=== PATIENT | male | born 1945 | race Caucasian/White ===

== ENCOUNTER 2017-09-12 12:03 | Inpatient (IN) | payer BC, MEDICARE ==
[2017-09-12] MEDS: CEFAZOLIN 2 GM/50 ML (PMX) 50 ML IVPB (06:00)
[2017-09-12] MEDS: TRANEXAMIC ACID 1,000 MG in DEXTROSE 5% 100 ML IVPB (06:00)
[~2017-09-12 12:03] MED LIST: BUPIVACAINE 0.5% (SDV) 30 ML, morphine SULFATE (PF) 8 MG, EPINEPHrine 0.3 MG, KETOROLAC... IRR
[2017-09-12] MEDS: traMADol 50 MG TAB PO (12:39)
[2017-09-12] MEDS: GABAPENTIN 300 MG CAP PO ×2 (12:39→22:18)
[2017-09-12] MEDS: DEXAMETHASONE 1 MG TAB PO (12:39)
[2017-09-12] MEDS ORDERED: ROPIVACAINE 0.5 % 30 ML VIAL (13:21)
[2017-09-12] MEDS ORDERED: LIDOCAINE 2% (SDV) 5 ML INJ (13:23)
[2017-09-12] MEDS ORDERED: PROPOFOL 20 ML (13:23)
[2017-09-12] MEDS ORDERED: CEFAZOLIN 1 GM INJ (13:23)
[2017-09-12] MEDS ORDERED: THROMBIN 5000 UNIT VIAL (13:43)
[2017-09-12] MEDS ORDERED: BUPIVACAINE 0.5%/EPI (SDV) 30 ML INJ (13:43)
[2017-09-12] MEDS: POLYMYXIN/BACITRACIN 1L IRRIG (15:00)
[2017-09-12] MEDS ORDERED: hydrALAzine 20 MG INJ (15:04)
[2017-09-12] MEDS ORDERED: DIPHENHYDRAMINE 50 MG INJ IV ×2 (15:30→16:30)
[2017-09-12] MEDS ORDERED: MIDAZOLAM 1 MG/ML 2 ML INJ IV (15:30)
[2017-09-12] MEDS ORDERED: hydrALAzine 20 MG INJ IV (15:30)
[2017-09-12] MEDS ORDERED: HYDROmorphONE (0.2 MG/ML) 10ML SYG IV ×3 (15:30)
[2017-09-12] MEDS ORDERED: LABETALOL HCL 20MG INJ IV (15:30)
[2017-09-12] MEDS ORDERED: MEPERIDINE 25 MG INJ IV (15:30)
[2017-09-12] MEDS ORDERED: METOCLOPRAMIDE 10 MG INJ IV (15:30)
[2017-09-12] MEDS ORDERED: ONDANSETRON 4 MG INJ IV ×2 (15:30→16:30)
[2017-09-12] MEDS ORDERED: EPHEDrine SULFATE 50 MG/5 ML SYG IV (15:30)
[2017-09-12] MEDS ORDERED: OXYCODONE/ACETAMINOPHEN (5/325) TAB PO ×3 (15:30→16:30)
[2017-09-12] MEDS ORDERED: ONDANSETRON 4 MG INJ (16:09)
[2017-09-12] MEDS ORDERED: KETOROLAC 15 MG INJ IV (16:30)
[2017-09-12] MEDS ORDERED: ZOLPIDEM 5 MG TAB PO (16:30)
[2017-09-12] MEDS ORDERED: ACETAMINOPHEN 500 MG TAB PO (16:30)
[2017-09-12] MEDS: [UNRECOGNIZED DRUG - REMARK] XX (16:30)
[2017-09-12] MEDS ORDERED: MAGNESIUM HYDROXIDE 30ML CUP PO (16:30)
[2017-09-12] MEDS ORDERED: morphine 2 MG INJ IV ×2 (16:30)
[2017-09-12] MEDS: CEFAZOLIN 1 GM/50 ML (PMX) 50 ML IVPB (17:15)
[2017-09-12] MEDS: TRANEXAMIC ACID 1,000 MG in DEXTROSE 5% 100 ML IV (17:31)
[2017-09-12] MEDS: DEXAMETHASONE 2 MG TAB PO (18:00)
[2017-09-12] MEDS ORDERED: GLUCAGON 1 MG INJ IM (21:30)
[2017-09-12] MEDS ORDERED: DEXTROSE 50% 50 ML SYRINGE IV ×2 (21:30)
[2017-09-12] MEDS ORDERED: GLUCOSE GEL 15 GRAM TUBE PO ×2 (21:30)
[2017-09-12] MEDS ORDERED: GLUCOSE GEL 15 GRAM TUBE BUCCAL (21:30)
[2017-09-12] MEDS: SENNA/DOCUSATE NA (8.6MG/50MG) TAB PO (22:18)
[2017-09-12] MEDS: EZETIMIBE 10 MG TAB PO (22:21)
[2017-09-12] MEDS: INSULIN ASPART [NOVOLOG] 3 ML PEN SC (22:23)
[2017-09-13] MEDS: DEXAMETHASONE 2 MG TAB PO ×2 (00:11→05:59)
[2017-09-13] MEDS: CEFAZOLIN 1 GM/50 ML (PMX) 50 ML IVPB ×2 (00:15→08:55)
[2017-09-13] MEDS: [UNRECOGNIZED DRUG - REMARK] XX ×2 (00:30→08:30)
[2017-09-13] MEDS: ACCU-CHEK XX (02:00)
[2017-09-13] MEDS: OXYCODONE/ACETAMINOPHEN (5/325) TAB PO (07:48)
[2017-09-13] MEDS: INSULIN ASPART [NOVOLOG] 3 ML PEN SC (07:50)
[2017-09-13] MEDS ORDERED: GLIMEPIRIDE 2 MG TAB PO (07:50)
[2017-09-13] MEDS: SENNA/DOCUSATE NA (8.6MG/50MG) TAB PO (08:53)
[2017-09-13] MEDS: MAGNESIUM OXIDE 400 MG TAB PO (08:53)
[2017-09-13] MEDS: ASPIRIN 81 MG TAB PO (08:53)
[2017-09-13] MEDS: TRIAMTERENE/HCTZ (50-25) CAP PO (08:54)
[2017-09-13] MEDS ORDERED: POTASSIUM GLUCONATE 595 MG PO (09:00)
== END 2017-09-13 11:12 | disposition home or self-care (01) | DRG 483 ==
LOC: REC 12:03 → MS1 17:50
PROVIDERS: Orthopaedic Surgery
PROC: 0RRJ00Z Replacement of Right Shoulder Joint with Reverse Ball and Socket Synthetic Substitute, Open Approach (ICD-10-PCS; principal; 2017-09-12 14:08)
PROC: 0RPJ0JZ Removal of Synthetic Substitute from Right Shoulder Joint, Open Approach (ICD-10-PCS; 2017-09-12 14:08)
DX: T84.038A Mechanical loosening of other internal prosthetic joint, initial encounter (principal); Z96.611 Presence of right artificial shoulder joint; M75.101 Unspecified rotator cuff tear or rupture of right shoulder, not specified as traumatic
CPT/HCPCS: 73030-RT; 82962; 86999; 97165

== ENCOUNTER 2017-10-10 05:30 | Inpatient (IN) | payer BC, MEDICARE ==
[2017-10-10] MEDS: GABAPENTIN 300 MG CAP PO ×2 (06:24→21:38)
[2017-10-10] MEDS: traMADol 50 MG TAB PO (06:24)
[2017-10-10] MEDS: DEXAMETHASONE 1 MG TAB PO (06:25)
[2017-10-10 06:31] LABS: ADD MAN DIFF? NO
[2017-10-10 06:36] LABS: WHITE BLOOD COUNT 6.4 10^3/ul (4.8-10.8)
[2017-10-10 06:36] LABS: BASOPHIL # 0.1 10^3/ul (0.0-0.1); BASOPHILS % 0.8 % (0.0-2.0); EOSINOPHILS # 0.3 10^3/ul (0.0-0.5); EOSINOPHILS % 4.1 % (0.0-7.0); HEMATOCRIT 40.6 % (42.0-52.0); HEMOGLOBIN 13.5 g/dl (14.0-18.0); LYMPHOCYTES # 1.5 10^3/ul (0.8-2.9); LYMPHOCYTES % 23.9 % (15.0-51.0); MEAN CORPUSCULAR HEMOGLOBIN 31.4 pg (29.0-33.0); MEAN CORPUSCULAR HGB CONC 33.3 g/dl (32.0-37.0); MEAN CORPUSCULAR VOLUME 94.4 fl (82.0-101.0); MEAN PLATELET VOLUME 10.3 fl (7.4-10.4); MONOCYTE # 0.6 10^3/ul (0.3-0.9); MONOCYTES % 9.6 % (0.0-11.0); NEUTROPHIL # 3.9 10^3/ul (1.6-7.5); NEUTROPHILS % 61.1 % (39.0-77.0); PLATELET COUNT 279 10^3/UL (140-415); RED CELL DISTRIBUTION WIDTH 12.4 % (11.5-14.5)
[2017-10-10] MEDS ORDERED: MIDAZOLAM 1 MG/ML 2 ML INJ (06:39)
[2017-10-10] MEDS ORDERED: ROPIVACAINE 0.5 % 30 ML VIAL (06:39)
[2017-10-10 06:54] LABS: INR 0.97
[2017-10-10 06:56] LABS: ALANINE AMINOTRANSFERASE 33 IU/L (13-69); ALBUMIN 4.3 g/dl (3.3-4.9); ALKALINE PHOSPHATASE 148 IU/L (42-121); ANION GAP 15 (8-16); ASPARTATE AMINO TRANSFERASE 30 IU/L (15-46); BILIRUBIN,INDIRECT 0.6 mg/dl (0-1.1); BILIRUBIN,TOTAL 0.6 mg/dl (0.2-1.3); CARBON DIOXIDE 30 mmol/L (21-31); CHLORIDE 100 mmol/L (97-110); GLUCOSE 195 mg/dl (70-220); TOTAL PROTEIN 8.2 g/dl (6.1-8.1)
[2017-10-10 06:59] LABS: BLOOD UREA NITROGEN 21 mg/dl (7-20); CALCIUM 9.7 mg/dl (8.4-10.2); CREATININE 0.91 mg/dl (0.61-1.24); POTASSIUM 3.4 mmol/L (3.5-5.1); SODIUM 142 mmol/L (135-144)
[2017-10-10] MEDS ORDERED: BUPIVACAINE 0.5% (SDV) 30 ML, morphine SULFATE (PF) 8 MG, EPINEPHrine 0.3 MG, KETOROLAC... IRR (07:00)
[2017-10-10] MEDS ORDERED: CEFAZOLIN 2 GM/50 ML (PMX) 50 ML IVPB (07:00)
[2017-10-10] MEDS ORDERED: TRANEXAMIC ACID 1,000 MG in DEXTROSE 5% 100 ML IVPB (07:00)
[2017-10-10 07:01] LABS: ADD UMIC YES; UR ASCORBIC ACID NEGATIVE (NEGATIVE); UR BILIRUBIN (Dip) NEGATIVE (NEGATIVE); UR BLOOD (Dip) 1+ mg/dL (NEGATIVE); UR CLARITY CLEAR (CLEAR); UR COLOR YELLOW (YELLOW); UR GLUCOSE (Dip) NEGATIVE (NEGATIVE); UR KETONES (Dip) NEGATIVE (NEGATIVE); UR LEUKOCYTE ESTERASE (Dip) NEGATIVE Leu/ul (NEGATIVE); UR MUCUS FEW /HPF (NONE SEEN); UR NITRITE (Dip) NEGATIVE (NEGATIVE); UR RBC 1 /HPF (0-5); UR SPECIFIC GRAVITY (Dip) 1.016 (1.003-1.030); UR TOTAL PROTEIN (Dip) NEGATIVE (NEGATIVE); UR UROBILINOGEN (Dip) NEGATIVE (NEGATIVE); UR WBC 1 /HPF (0-5)
[2017-10-10] MEDS: CA CHLORIDE 10% 10 ML SYRINGE (07:03)
[2017-10-10] MEDS ORDERED: TOBRAMYCIN 1.2 GM POWDER (07:03)
[2017-10-10] MEDS: POLYMYXIN/BACITRACIN 1L IRRIG (07:03)
[2017-10-10] MEDS: THROMBIN 5000 UNIT VIAL (07:03)
[2017-10-10] MEDS: BUPIVACAINE 0.5%/EPI (SDV) 30 ML INJ (07:03)
[2017-10-10 07:09] LABS: PARTIAL THROMBOPLASTIN TIME 36.2 Sec (25.0-35.0)
[2017-10-10] MEDS ORDERED: LABETALOL HCL 20MG INJ (07:35)
[2017-10-10] MEDS ORDERED: PROPOFOL 20 ML (07:35)
[2017-10-10] MEDS ORDERED: SUCCINYLCHOLINE CHLORIDE 100 MG/5 ML SYG IV (07:35)
[2017-10-10] MEDS ORDERED: ROCURONIUM 50 MG INJ (07:35)
[2017-10-10] MEDS ORDERED: LIDOCAINE 100 MG SYRINGE (07:35)
[2017-10-10] MEDS ORDERED: SUGAMMADEX SODIUM 200 MG/2 ML VIAL IV (07:35)
[2017-10-10] MEDS ORDERED: CEFAZOLIN 1 GM INJ (07:35)
[2017-10-10] MEDS ORDERED: MAGNESIUM HYDROXIDE 30ML CUP PO (08:30)
[2017-10-10] MEDS ORDERED: METOCLOPRAMIDE 10 MG INJ IV (08:30)
[2017-10-10] MEDS ORDERED: ACETAMINOPHEN 500 MG TAB PO (08:30)
[2017-10-10] MEDS ORDERED: OXYCODONE/ACETAMINOPHEN (5/325) TAB PO (08:30)
[2017-10-10] MEDS ORDERED: DIPHENHYDRAMINE 50 MG INJ IV ×2 (08:30)
[2017-10-10] MEDS ORDERED: KETOROLAC 15 MG INJ IV (08:30)
[2017-10-10] MEDS ORDERED: MEPERIDINE 25 MG INJ IV (08:30)
[2017-10-10] MEDS ORDERED: morphine 2 MG INJ IV (08:30)
[2017-10-10] MEDS ORDERED: FENTAnyl 50 MCG/ML VIAL IV ×2 (08:30)
[2017-10-10] MEDS ORDERED: ONDANSETRON 4 MG INJ IV ×2 (08:30)
[2017-10-10] MEDS ORDERED: HYDROmorphONE 1 MG/5 ML IV SYRINGE IV ×2 (08:30)
[2017-10-10] MEDS ORDERED: ZOLPIDEM 5 MG TAB PO (08:30)
[2017-10-10] MEDS ORDERED: GLUCOSE GEL 15 GRAM TUBE PO ×2 (10:00)
[2017-10-10] MEDS ORDERED: GLUCOSE GEL 15 GRAM TUBE BUCCAL (10:00)
[2017-10-10] MEDS ORDERED: GLUCAGON 1 MG INJ IM (10:00)
[2017-10-10] MEDS ORDERED: DEXTROSE 50% 50 ML SYRINGE IV ×2 (10:00)
[2017-10-10] MEDS: TRIAMTERENE/HCTZ (50-25) CAP PO (10:34)
[2017-10-10] MEDS: SENNA/DOCUSATE NA (8.6MG/50MG) TAB PO ×2 (10:35→21:37)
[2017-10-10] MEDS: TRANEXAMIC ACID 1,000 MG in DEXTROSE 5% 100 ML IV (10:35)
[2017-10-10] MEDS: DEXAMETHASONE 2 MG TAB PO ×2 (14:47→18:37)
[2017-10-10] MEDS: CEFAZOLIN 1 GM/50 ML (PMX) 50 ML IVPB ×2 (14:49→21:37)
[2017-10-10] MEDS: morphine 2 MG INJ IV (20:24)
[2017-10-10] MEDS: EZETIMIBE 10 MG TAB PO (22:12)
[2017-10-11] MEDS: DEXAMETHASONE 2 MG TAB PO ×2 (00:22→05:47)
[2017-10-11] MEDS: morphine 2 MG INJ IV (00:26)
[2017-10-11] MEDS: CEFAZOLIN 1 GM/50 ML (PMX) 50 ML IVPB (05:47)
[2017-10-11] MEDS: ASPIRIN 81 MG TAB PO (08:16)
[2017-10-11] MEDS: TRIAMTERENE/HCTZ (50-25) CAP PO (08:16)
[2017-10-11] MEDS: OXYCODONE/ACETAMINOPHEN (5/325) TAB PO (08:16)
[2017-10-11] MEDS: GLIMEPIRIDE 2 MG TAB PO (08:17)
[2017-10-11] MEDS: SENNA/DOCUSATE NA (8.6MG/50MG) TAB PO (08:17)
== END 2017-10-11 10:44 | disposition home or self-care (01) | DRG 483 ==
LOC: SDS 05:30 → MS1 10:18 → SDS 15:08 → MS1 08:29
PROC: 0RRJ0J6 Replacement of Right Shoulder Joint with Synthetic Substitute, Humeral Surface, Open Approach (ICD-10-PCS; principal; 2017-10-10 07:00)
PROC: 0RPJ0JZ Removal of Synthetic Substitute from Right Shoulder Joint, Open Approach (ICD-10-PCS; 2017-10-10 07:00)
DX: T84.038A Mechanical loosening of other internal prosthetic joint, initial encounter (principal); E78.5 Hyperlipidemia, unspecified; E11.9 Type 2 diabetes mellitus without complications; Z96.611 Presence of right artificial shoulder joint
CPT/HCPCS: 73030-RT; 80053; 81001; 82962; 85025; 85610; 85730; 86999; 97167

== ENCOUNTER 2017-12-21 08:27 | Emergency (ER) | payer BC, MEDICARE ==
[2017-12-21] MEDS: ALTEPLASE (CATHFLO) 2 MG INJ CATHETER ×3 (09:38→11:44)
== END 2017-12-21 14:35 | disposition home or self-care (01) ==
LOC: E/R 08:27
DX: T82.898A Other specified complication of vascular prosthetic devices, implants and grafts, initial encounter (principal); E11.9 Type 2 diabetes mellitus without complications; Y71.3 Surgical instruments, materials and cardiovascular devices (including sutures) associated with adverse incidents; Z79.82 Long term (current) use of aspirin; Z79.84 Long term (current) use of oral hypoglycemic drugs; Z91.040 Latex allergy status
CPT/HCPCS: 71045; 99283-25

== ENCOUNTER 2018-03-27 08:53 | Inpatient (IN) | payer BC, MEDICARE ==
[2018-03-27] MEDS: CEFAZOLIN 2 GM/50 ML (PMX) 50 ML IVPB (10:00)
[2018-03-27] MEDS: GABAPENTIN 300 MG CAP PO ×2 (10:11→21:06)
[2018-03-27] MEDS: DEXAMETHASONE 1 MG TAB PO (10:11)
[2018-03-27] MEDS ORDERED: ONDANSETRON 4 MG INJ (12:00)
[2018-03-27] MEDS ORDERED: ROPIVACAINE 0.2% 20 ML VIAL (12:00)
[2018-03-27] MEDS ORDERED: MIDAZOLAM 1 MG/ML 2 ML INJ (12:00)
[2018-03-27] MEDS ORDERED: METOCLOPRAMIDE 10 MG INJ (12:00)
[2018-03-27] MEDS ORDERED: PROPOFOL 20 ML (12:00)
[2018-03-27] MEDS ORDERED: FENTAnyl 50 MCG/ML VIAL ×2 (12:00→13:22)
[2018-03-27] MEDS ORDERED: BUPIVACAINE 0.5%/EPI (SDV) 30 ML INJ (12:24)
[2018-03-27] MEDS ORDERED: THROMBIN 5000 UNIT VIAL (12:24)
[2018-03-27] MEDS ORDERED: CA CHLORIDE 10% 10 ML SYRINGE (12:24)
[2018-03-27] MEDS: TRANEXAMIC ACID 1,000 MG in DEXTROSE 5% 100 ML IVPB ×2 (12:59→14:00)
[2018-03-27] MEDS ORDERED: CEFAZOLIN 1 GM INJ (12:59)
[2018-03-27] MEDS ORDERED: HYDROmorphONE 1 MG/5 ML IV SYRINGE IV ×3 (13:00)
[2018-03-27] MEDS ORDERED: ONDANSETRON 4 MG INJ IV ×2 (13:00→15:30)
[2018-03-27] MEDS ORDERED: LABETALOL HCL 20MG INJ IV (13:00)
[2018-03-27] MEDS ORDERED: DIPHENHYDRAMINE 50 MG INJ IV ×2 (13:00→15:30)
[2018-03-27] MEDS ORDERED: hydrALAzine 20 MG INJ IV (13:00)
[2018-03-27] MEDS ORDERED: MEPERIDINE 25 MG INJ IV (13:00)
[2018-03-27] MEDS: BUPIVACAINE 0.5% (SDV) 30 ML, morphine SULFATE (PF) 8 MG, EPINEPHrine 0.3 MG, KETOROLAC... IRR (13:44)
[2018-03-27] MEDS: POLYMYXIN/BACITRACIN 1L IRRIG (13:45)
[2018-03-27] MEDS ORDERED: EPHEDrine SULFATE 50 MG/5 ML SYG (14:14)
[2018-03-27] MEDS ORDERED: OXYCODONE/ACETAMINOPHEN (5/325) TAB PO (15:30)
[2018-03-27] MEDS ORDERED: KETOROLAC 15 MG INJ IV (15:30)
[2018-03-27] MEDS ORDERED: MAGNESIUM HYDROXIDE 30ML CUP PO (15:30)
[2018-03-27] MEDS ORDERED: morphine 2 MG INJ IV ×2 (15:30)
[2018-03-27] MEDS ORDERED: ZOLPIDEM 5 MG TAB PO (15:30)
[2018-03-27] MEDS: TRANEXAMIC ACID 1,000 MG in DEXTROSE 5% 100 ML IV (15:47)
[2018-03-27] MEDS: CEFAZOLIN 1 GM/50 ML (PMX) 50 ML IVPB ×2 (15:52→22:53)
[2018-03-27] MEDS ORDERED: GLUCAGON 1 MG INJ IM (16:00)
[2018-03-27] MEDS ORDERED: GLUCOSE GEL 15 GRAM TUBE BUCCAL (16:00)
[2018-03-27] MEDS ORDERED: DEXTROSE 50% 50 ML SYRINGE IV ×2 (16:00)
[2018-03-27] MEDS ORDERED: GLUCOSE GEL 15 GRAM TUBE PO ×2 (16:00)
[2018-03-27 17:13] LABS: ADD MAN DIFF? NO
[2018-03-27 17:17] LABS: BASOPHILS % 0.2 % (0.0-2.0); HEMATOCRIT 39.3 % (42.0-52.0); HEMOGLOBIN 12.9 g/dl (14.0-18.0); LYMPHOCYTES # 0.7 10^3/ul (0.8-2.9); LYMPHOCYTES % 5.2 % (15.0-51.0); MEAN CORPUSCULAR HEMOGLOBIN 30.9 pg (29.0-33.0); MEAN CORPUSCULAR HGB CONC 32.8 g/dl (32.0-37.0); MEAN PLATELET VOLUME 10.2 fl (7.4-10.4); MONOCYTE # 0.4 10^3/ul (0.3-0.9); MONOCYTES % 2.9 % (0.0-11.0); NEUTROPHILS % 90.9 % (39.0-77.0); PLATELET COUNT 217 10^3/UL (140-415); RED BLOOD COUNT 4.18 10^6/ul (4.70-6.10); RED CELL DISTRIBUTION WIDTH 13.3 % (11.5-14.5)
[2018-03-27 17:17] LABS: WHITE BLOOD COUNT 13.2 10^3/ul (4.8-10.8)
[2018-03-27] MEDS: DEXAMETHASONE 2 MG TAB PO ×2 (17:48→23:00)
[2018-03-27] MEDS: ACCU-CHEK XX ×3 (17:48→21:00)
[2018-03-27] MEDS: metFORMIN 500 MG TAB PO (17:48)
[2018-03-27] MEDS: SENNA/DOCUSATE NA (8.6MG/50MG) TAB PO (21:06)
[2018-03-27] MEDS: INSULIN ASPART [NOVOLOG] 3 ML PEN SC (22:53)
[2018-03-28] MEDS: ACCU-CHEK XX ×3 (02:00→07:20)
[2018-03-28 05:29] LABS: ANION GAP 9 (5-13); BLOOD UREA NITROGEN 23 mg/dl (7-20); CALCIUM 8.5 mg/dl (8.4-10.2); CARBON DIOXIDE 29 mmol/L (21-31); CHLORIDE 97 mmol/L (97-110); CREATININE 0.86 mg/dl (0.61-1.24); GLUCOSE 278 mg/dl (70-220); POTASSIUM 4.6 mmol/L (3.5-5.1); SODIUM 135 mmol/L (135-144)
[2018-03-28] MEDS: CEFAZOLIN 1 GM/50 ML (PMX) 50 ML IVPB (06:34)
[2018-03-28] MEDS: DEXAMETHASONE 2 MG TAB PO (06:34)
[2018-03-28] MEDS: OXYCODONE/ACETAMINOPHEN (5/325) TAB PO (06:41)
[2018-03-28] MEDS: metFORMIN 500 MG TAB PO (07:50)
[2018-03-28] MEDS ORDERED: INSULIN ASPART [NOVOLOG] 3 ML PEN SC (07:50)
[2018-03-28] MEDS: GLIMEPIRIDE 2 MG TAB PO (07:50)
[2018-03-28] MEDS: TRIAMTERENE/HCTZ (50-25) CAP PO (09:00)
[2018-03-28] MEDS: INSULIN ASPART [NOVOLOG] 3 ML PEN SC (09:07)
[2018-03-28] MEDS: SENNA/DOCUSATE NA (8.6MG/50MG) TAB PO (09:09)
[2018-03-28] MEDS: LINAGLIPTIN 5 MG TABLET PO (09:09)
[2018-03-28] MEDS: ASPIRIN 81 MG TAB PO (09:09)
== END 2018-03-28 11:07 | disposition home or self-care (01) | DRG 483 ==
LOC: REC 08:53 → MS1 16:30
PROVIDERS: Orthopaedic Surgery
PROC: 0RRJ0J6 Replacement of Right Shoulder Joint with Synthetic Substitute, Humeral Surface, Open Approach (ICD-10-PCS; principal; 2018-03-27 11:30)
PROC: 0RPJ0JZ Removal of Synthetic Substitute from Right Shoulder Joint, Open Approach (ICD-10-PCS; 2018-03-27 11:30)
DX: T84.89XA Other specified complication of internal orthopedic prosthetic devices, implants and grafts, initial encounter (principal); Z96.611 Presence of right artificial shoulder joint; E11.9 Type 2 diabetes mellitus without complications; Z79.84 Long term (current) use of oral hypoglycemic drugs
CPT/HCPCS: 73030-RT; 80048; 82962; 85025; 86999; 87070; 87075; 88300

== ENCOUNTER 2018-04-11 08:30 | Emergency (ER) | payer BC, MEDICARE ==
[2018-04-11 09:43] LABS: ADD MAN DIFF? NO
[2018-04-11 09:47] LABS: BASOPHIL # 0.1 10^3/ul (0.0-0.1); EOSINOPHILS # 0.2 10^3/ul (0.0-0.5); EOSINOPHILS % 2.7 % (0.0-7.0); HEMATOCRIT 38.2 % (42.0-52.0); HEMOGLOBIN 12.5 g/dl (14.0-18.0); MEAN CORPUSCULAR HEMOGLOBIN 30.8 pg (29.0-33.0); MEAN CORPUSCULAR HGB CONC 32.7 g/dl (32.0-37.0); MEAN CORPUSCULAR VOLUME 94.1 fl (82.0-101.0); MEAN PLATELET VOLUME 10.1 fl (7.4-10.4); MONOCYTE # 0.5 10^3/ul (0.3-0.9); MONOCYTES % 8.3 % (0.0-11.0); NEUTROPHIL # 4.2 10^3/ul (1.6-7.5); NEUTROPHILS % 70.2 % (39.0-77.0); PLATELET COUNT 253 10^3/UL (140-415); RED BLOOD COUNT 4.06 10^6/ul (4.70-6.10)
[2018-04-11] MEDS: CEFTRIAXONE 1 GM/50 ML (PMX) 50 ML IVPB (09:52)
[2018-04-11 10:15] LABS: ANION GAP 11 (5-13); BLOOD UREA NITROGEN 15 mg/dl (7-20); CALCIUM 9.7 mg/dl (8.4-10.2); CARBON DIOXIDE 35 mmol/L (21-31); CHLORIDE 95 mmol/L (97-110); GLUCOSE 205 mg/dl (70-220); POTASSIUM 4.4 mmol/L (3.5-5.1); SODIUM 141 mmol/L (135-144)
== END 2018-04-11 12:12 | disposition home or self-care (01) ==
LOC: FTE 08:30 → E/R 12:12
DX: L03.113 Cellulitis of right upper limb (principal); E11.9 Type 2 diabetes mellitus without complications; Z79.84 Long term (current) use of oral hypoglycemic drugs; Z79.82 Long term (current) use of aspirin; Z87.891 Personal history of nicotine dependence; Z91.040 Latex allergy status; Z96.611 Presence of right artificial shoulder joint
CPT/HCPCS: 36415; 73030-RT; 80048; 85025; 96374; 99284-25

== ENCOUNTER 2018-05-15 10:02 | Inpatient (IN) | payer OTHER, MEDICARE, BC ==
[~2018-05-15 10:02] MED LIST changes: +CEFAZOLIN 2 GM/50 ML (PMX) 50 ML IVPB; +SOD CHLORIDE 0.9% 100 ML, TRANEXAMIC ACID 3,000 MG IRR; +SUGAMMADEX SODIUM 200 MG/2 ML VIAL IV; +TRANEXAMIC ACID 1,000 MG in DEXTROSE 5% 100 ML IVPB
[2018-05-15] MEDS ORDERED: CEFAZOLIN 1 GM INJ (10:26)
[2018-05-15] MEDS ORDERED: NEOSTIGMINE 3 MG/3 ML SYRINGE (10:26)
[2018-05-15] MEDS ORDERED: GLYCOPYRROLATE 0.4 MG INJ (10:26)
[2018-05-15] MEDS ORDERED: PROPOFOL 20 ML (10:26)
[2018-05-15] MEDS ORDERED: ROCURONIUM 50 MG INJ (10:26)
[2018-05-15] MEDS ORDERED: FENTAnyl 50 MCG/ML VIAL (10:27)
[2018-05-15] MEDS ORDERED: ONDANSETRON 4 MG INJ (10:27)
[2018-05-15] MEDS ORDERED: MIDAZOLAM 1 MG/ML 2 ML INJ (10:27)
[2018-05-15] MEDS ORDERED: ROPIVACAINE 0.5 % 30 ML VIAL (10:27)
[2018-05-15] MEDS: DEXAMETHASONE 1 MG TAB PO (10:51)
[2018-05-15] MEDS: GABAPENTIN 300 MG CAP PO ×2 (10:51→21:00)
[2018-05-15 10:58] LABS: ADD MAN DIFF? NO
[2018-05-15 11:01] LABS: BASOPHIL # 0.1 10^3/ul (0.0-0.1); BASOPHILS % 1.1 % (0.0-2.0); EOSINOPHILS # 0.1 10^3/ul (0.0-0.5); HEMATOCRIT 38.8 % (42.0-52.0); HEMOGLOBIN 12.7 g/dl (14.0-18.0); MEAN CORPUSCULAR HEMOGLOBIN 30.9 pg (29.0-33.0); MEAN CORPUSCULAR HGB CONC 32.7 g/dl (32.0-37.0); MEAN CORPUSCULAR VOLUME 94.4 fl (82.0-101.0); MEAN PLATELET VOLUME 10.2 fl (7.4-10.4); MONOCYTE # 0.4 10^3/ul (0.3-0.9); MONOCYTES % 9.1 % (0.0-11.0); NEUTROPHILS % 65.4 % (39.0-77.0); PLATELET COUNT 188 10^3/UL (140-415); RED BLOOD COUNT 4.11 10^6/ul (4.70-6.10)
[2018-05-15 11:01] LABS: WHITE BLOOD COUNT 4.6 10^3/ul (4.8-10.8)
[2018-05-15 11:23] LABS: INR 0.92; PROTIME 12.5 Sec (11.9-14.9)
[2018-05-15 11:26] LABS: ANION GAP 11 (5-13); BLOOD UREA NITROGEN 18 mg/dl (7-20); CALCIUM 10.1 mg/dl (8.4-10.2); CARBON DIOXIDE 30 mmol/L (21-31); CHLORIDE 98 mmol/L (97-110); CREATININE 1.19 mg/dl (0.61-1.24); GLUCOSE 166 mg/dl (70-220); POTASSIUM 4.2 mmol/L (3.5-5.1); SODIUM 139 mmol/L (135-144)
[2018-05-15 11:30] LABS: PARTIAL THROMBOPLASTIN TIME 36.3 Sec (23.0-35.0)
[2018-05-15] MEDS ORDERED: BUPIVACAINE 0.5%/EPI (SDV) 30 ML INJ (11:45)
[2018-05-15] MEDS ORDERED: THROMBIN 5000 UNIT VIAL (11:45)
[2018-05-15] MEDS: POLYMYXIN/BACITRACIN 1L IRRIG (11:45)
[2018-05-15] MEDS ORDERED: CA CHLORIDE (GM) 10% 10 ML INJ (11:45)
[2018-05-15] MEDS ORDERED: hydrALAzine 20 MG INJ IV ×2 (12:00→18:30)
[2018-05-15] MEDS ORDERED: ONDANSETRON 4 MG INJ IV ×2 (12:00→14:00)
[2018-05-15] MEDS ORDERED: DIPHENHYDRAMINE 50 MG INJ IV ×2 (12:00→14:00)
[2018-05-15] MEDS ORDERED: HYDROmorphONE 1 MG/5 ML IV SYRINGE IV ×3 (12:00)
[2018-05-15] MEDS ORDERED: ALBUTEROL 0.083% (NEB) 2.5 MG/3 ML AMP HHN (12:00)
[2018-05-15] MEDS ORDERED: IPRATROPIUM (NEB) 0.5 MG/2.5 ML AMP HHN (12:00)
[2018-05-15] MEDS ORDERED: FENTAnyl 50 MCG/ML VIAL IV ×3 (12:00)
[2018-05-15] MEDS ORDERED: MIDAZOLAM 1 MG/ML 2 ML INJ IV (12:00)
[2018-05-15] MEDS ORDERED: MEPERIDINE 25 MG INJ IV (12:00)
[2018-05-15] MEDS ORDERED: LABETALOL HCL 20MG INJ IV (12:00)
[2018-05-15] MEDS ORDERED: TRIMETHOBENZAMIDE 100 MG/ML VIAL IM (12:00)
[2018-05-15] MEDS ORDERED: OXYCODONE/ACETAMINOPHEN (5/325) TAB PO ×2 (12:00)
[2018-05-15] MEDS ORDERED: EPHEDrine SULFATE 50 MG/5 ML SYG IV (12:00)
[2018-05-15] MEDS: VANCOMYCIN 1 GM INJ ×2 (12:50→12:51)
[2018-05-15] MEDS ORDERED: TRANEXAMIC ACID 1,000 MG in SOD CHLORIDE 0.9% 100 ML IVPB ×2 (13:30→14:00)
[2018-05-15] MEDS ORDERED: HYDROmorphONE 1 MG/ML SYG IV (14:00)
[2018-05-15] MEDS ORDERED: LOPERAMIDE 2 MG CAP PO (14:00)
[2018-05-15] MEDS ORDERED: ZOLPIDEM 5 MG TAB PO (14:00)
[2018-05-15] MEDS ORDERED: MAGNESIUM HYDROXIDE 30ML CUP PO (14:00)
[2018-05-15] MEDS ORDERED: oxyCODONE 5 MG TAB PO ×3 (14:00)
[2018-05-15] MEDS ORDERED: KETOROLAC 15 MG INJ IV (14:00)
[2018-05-15] MEDS ORDERED: NACL 0.9% 3 ML SYG IV (14:00)
[2018-05-15] MEDS ORDERED: CEFAZOLIN 1 GM/50 ML (PMX) 50 ML IVPB (14:14)
[2018-05-15] MEDS: TRANEXAMIC ACID 1,000 MG in SOD CHLORIDE 0.9% 100 ML IVPB (14:23)
[2018-05-15] MEDS: CEFAZOLIN 1 GM/50 ML (PMX) 50 ML IVPB ×2 (14:58→22:06)
[2018-05-15] MEDS: ACCU-CHEK XX ×6 (17:25→21:00)
[2018-05-15] MEDS: metFORMIN 500 MG TAB PO (18:08)
[2018-05-15] MEDS: ACETAMINOPHEN 500 MG TAB PO (18:08)
[2018-05-15] MEDS: DEXAMETHASONE 2 MG TAB PO (18:08)
[2018-05-15] MEDS ORDERED: DEXTROSE 50% 50 ML SYRINGE IV ×2 (18:30)
[2018-05-15] MEDS ORDERED: GLUCOSE GEL 15 GRAM TUBE PO ×2 (18:30)
[2018-05-15] MEDS ORDERED: GLUCAGON 1 MG INJ IM (18:30)
[2018-05-15] MEDS ORDERED: GLUCOSE GEL 15 GRAM TUBE BUCCAL (18:30)
[2018-05-15] MEDS: SENNA/DOCUSATE NA (8.6MG/50MG) TAB PO (21:00)
[2018-05-15] MEDS: GABAPENTIN 100 MG CAP PO (22:06)
[2018-05-15] MEDS: INSULIN ASPART [NOVOLOG] 3 ML PEN SC (22:14)
[2018-05-16] MEDS: ACETAMINOPHEN 500 MG TAB PO ×2 (06:31)
[2018-05-16] MEDS: CEFAZOLIN 1 GM/50 ML (PMX) 50 ML IVPB (06:31)
[2018-05-16] MEDS: DEXAMETHASONE 2 MG TAB PO ×2 (06:31)
[2018-05-16] MEDS: ACCU-CHEK XX ×3 (07:20)
[2018-05-16] MEDS: INSULIN ASPART [NOVOLOG] 3 ML PEN SC (07:50)
[2018-05-16] MEDS: GLIMEPIRIDE 2 MG TAB PO (07:50)
[2018-05-16] MEDS ORDERED: TRIAMTERENE/HCTZ (50-25) CAP PO (09:00)
[2018-05-16] MEDS: LINAGLIPTIN 5 MG TABLET PO ×2 (09:00→09:13)
[2018-05-16] MEDS ORDERED: TRIAMTERENE/HCTZ (37.5-25) CAP PO (09:00)
[2018-05-16] MEDS: SENNA/DOCUSATE NA (8.6MG/50MG) TAB PO (09:11)
[2018-05-16] MEDS: GABAPENTIN 100 MG CAP PO (09:12)
[2018-05-16] MEDS: TRIAMTERENE/HCTZ (37.5/25) TAB PO (09:12)
[2018-05-16] MEDS: metFORMIN 500 MG TAB PO (09:13)
== END 2018-05-16 10:23 | disposition home or self-care (01) | DRG 483 ==
LOC: REC 10:02 → MS1 15:30
PROC: 0RRJ00Z Replacement of Right Shoulder Joint with Reverse Ball and Socket Synthetic Substitute, Open Approach (ICD-10-PCS; principal; 2018-05-15 11:52)
PROC: 0RPJ0JZ Removal of Synthetic Substitute from Right Shoulder Joint, Open Approach (ICD-10-PCS; 2018-05-15 11:52)
DX: T84.89XA Other specified complication of internal orthopedic prosthetic devices, implants and grafts, initial encounter (principal); Y79.2 Prosthetic and other implants, materials and accessory orthopedic devices associated with adverse incidents; E11.9 Type 2 diabetes mellitus without complications; I10 Essential (primary) hypertension
CPT/HCPCS: 73030-RT; 80048; 82962; 85025; 85610; 85730; 86999; 88300; 90686